=== PATIENT | female | born 1960 | race Caucasian/White ===

== ENCOUNTER 2017-04-08 02:28 | Inpatient (IN) | payer BC, MEDICAID ==
[~2017-04-08] VITALS: Ht 165.1 cm; Wt 86.2 kg
[2017-04-08] VITALS (25 sets, daily range): BP systolic 90–145; BP diastolic 50–87
[2017-04-08] MEDS ORDERED: DILTIAZEM HCL 25 MG/5 ML VIAL IV ONE (03:30)
[2017-04-08] MEDS ORDERED: DIGOXIN (250MCG/ML) 2 ML AMPULE IV ONE (03:45)
[2017-04-08] MEDS ORDERED: AMIODARONE HCL (50 MG/ ML) 3 ML VIAL IV ONE (04:33)
[2017-04-08] MEDS ORDERED: AMIODARONE HCL 900 MG IV ONE (04:39)
[2017-04-08 04:43] LABS: Anion Gap 13 (5-15); Blood Urea Nitrogen 17 mg/dL (7-18); Calcium 9.1 mg/dL (8.5-10.1); Carbon Dioxide 21 mmol/L (21-32); Chloride 106 mmol/L (98-107); Glucose 302 mg/dL (74-106); Magnesium 2.1 mg/dL (1.6-2.6); Potassium 3.6 mmol/L (3.5-5.1); Sodium 140 mmol/L (136-145)
[2017-04-08 04:45] LABS: Aspartate Aminotransferase 11 U/L (15-37); BUN/Creatinine Ratio 19.3; GFR African American 85 mL/min; GFR Non-African American 70 mL/min
[2017-04-08] MEDS ORDERED: AMIODARONE HCL 150 MG in D5W 5% 100 ML IV ONE (04:45)
[2017-04-08] MEDS ORDERED: AMIODARONE HCL 900 MG in DEXTROSE 500 ML IV STA (04:45)
[2017-04-08] MEDS ORDERED: AMIODARONE HCL 900 MG in DEXTROSE 500 ML IV SCH ×3 (04:46→12:54)
[2017-04-08 04:50] LABS: Basophils # (auto) 0 uL; Basophils % (auto) 0.3 % (0.0-2.0); CONDITION Y; Eosinophils # (auto) 0.1 uL; Eosinophils % (auto) 0.6 % (0.0-7.0); Hematocrit 48.1 % (36.0-46.0); Hemoglobin 16.6 g/dL (12.2-16.2); Lymphocytes # (auto) 3.5 uL; Mean Corpuscular Hemoglobin 30.8 pg (28.0-32.0); Mean Corpuscular Hgb Conc. 34.5 g/dL (32.0-36.0); Mean Corpuscular Volume 89.3 fL (80.0-100.0); Mean Platelet Volume 10.8 fL (7.4-10.4); Monocytes # (auto) 0.7 uL; Monocytes % (auto) 7.9 % (0.0-12.0); Neutrophils # (auto) 5.1 uL; Neutrophils % (auto) 54.2 % (37.0-80.0); Platelet Count (auto) 246 10^3/uL (140-450); Red Cell Distribution Width 13.4 % (11.6-16.0); SUSPECT SEE PRINTOUT; White Blood Cell 9.5 10^3/uL (4.4-10.8)
[2017-04-08 04:51] LABS: Alkaline Phosphatase 136 U/L (45-117); Bilirubin, Total 0.5 mg/dL (0.2-1.0)
[2017-04-08] MEDS: AMIODARONE HCL 900 MG in DEXTROSE 500 ML IV SCH ×3 (05:00→11:14)
[2017-04-08] MEDS ORDERED: SODIUM CHLORIDE 0.9% 1,000 ML IV ONE (06:19)
[2017-04-08] MEDS ORDERED: DEXTROSE (50%) 50ML SYRG IV PRN (12:45)
[2017-04-08] MEDS ORDERED: TEMAZEPAM 15 MG CAP PO PRN (13:00)
[2017-04-08] MEDS ORDERED: ACETAMINOPHEN 325 MG TAB PO PRN (13:00)
[2017-04-08] MEDS ORDERED: ONDANSETRON HCL 4 MG/2 ML VIAL IV PRN (13:00)
[2017-04-08] MEDS ORDERED: HYDROcodone-ACET 5/325MG TAB PO PRN (13:00)
[2017-04-08] MEDS ORDERED: NITROGLYCERIN 0.4 MG SL TAB SL PRN (13:00)
[2017-04-08] MEDS ORDERED: MORPHINE SULF INJ 2 MG/ML SYRINGE 1ML IV PRN ×2 (13:00)
[2017-04-08] MEDS ORDERED: DOCUSATE SOD 100 MG CAP PO PRN (13:00)
[2017-04-08] MEDS ORDERED: MULTIPLE VITAMIN TAB PO ONE (13:15)
[2017-04-08] MEDS ORDERED: ENOXAPARIN SOD 40 MG/0.4 ML SYRINGE SC ONE (13:15)
[2017-04-08 13:45] LABS: B-Type Natriuretic Peptide 59.6 pg/mL (0-100)
[2017-04-08 13:46] LABS: Temperature: 23.3 C (20.0-25.0)
[2017-04-08 13:46] LABS: Urine Bilirubin Negative (Negative); Urine Color Yellow (Yellow); Urine Ketone Negative (Negative); Urine Nitrite Negative (Negative); Urine RBC 7 /hpf (0 - 4); Urine Squamous Epithelial Cell FEW /hpf (<5); Urine Urobilinogen Normal (Negative)
[2017-04-08 13:48] LABS: Urine Blood 1+ /uL (Negative); Urine Glucose 4+ mg/dL (Normal)
[2017-04-08] MEDS: SODIUM CHLOR 0.9% PF (SALINE LOCK) 10ML VIAL IV SCH ×2 (14:03→22:22)
[2017-04-08] MEDS: ACCU-CHEK COMFORT CURVE STRIP VI SCH ×2 (17:06→22:22)
[2017-04-08] MEDS: InsuLIN REG 1unit/0.01ml Soln (100units/ml) SC SCH ×2 (17:42→22:25)
[2017-04-08] MEDS ORDERED: METF-370 PO (17:51)
[2017-04-08 21:04] LABS: INR 1.05 (0.9-1.15); Prothrombin Time 11.4 sec (9.37-12.3)
[2017-04-09] VITALS (49 sets, daily range): BP systolic 95–138; BP diastolic 44–84
[2017-04-09] MEDS ORDERED: AMIODARONE HCL 900 MG IV ONE (03:54)
[2017-04-09 04:03] LABS: Albumin 3.1 g/dL (3.4-5.0); Anion Gap 8 (5-15); Basophils # (auto) 0 uL; Basophils % (auto) 0.4 % (0.0-2.0); Blood Urea Nitrogen 13 mg/dL (7-18); CONDITION Y; Calcium 8.7 mg/dL (8.5-10.1); Carbon Dioxide 25 mmol/L (21-32); Chloride 109 mmol/L (98-107); Eosinophils # (auto) 0.1 uL; Eosinophils % (auto) 1.3 % (0.0-7.0); Glucose 137 mg/dL (74-106); Hematocrit 42.5 % (36.0-46.0); Hemoglobin 14.6 g/dL (12.2-16.2); Lymphocytes # (auto) 2.3 uL; Mean Corpuscular Hemoglobin 30.9 pg (28.0-32.0); Mean Corpuscular Hgb Conc. 34.3 g/dL (32.0-36.0); Mean Corpuscular Volume 90.3 fL (80.0-100.0); Mean Platelet Volume 10.1 fL (7.4-10.4); Monocytes # (auto) 0.5 uL; Neutrophils # (auto) 4.1 uL; Neutrophils % (auto) 58.3 % (37.0-80.0); Platelet Count (auto) 223 10^3/uL (140-450); Potassium 3.7 mmol/L (3.5-5.1); Red Cell Distribution Width 13.9 % (11.6-16.0); Sodium 142 mmol/L (136-145); White Blood Cell 7.1 10^3/uL (4.4-10.8)
[2017-04-09] MEDS: AMIODARONE HCL 900 MG in DEXTROSE 500 ML IV SCH (04:03)
[2017-04-09 04:05] LABS: Aspartate Aminotransferase 15 U/L (15-37); GFR African American 135 mL/min; GFR Non-African American 111 mL/min
[2017-04-09 04:10] LABS: Alkaline Phosphatase 103 U/L (45-117); Bilirubin, Total 0.5 mg/dL (0.2-1.0); Total Protein 6.5 g/dL (6.4-8.2)
[2017-04-09] MEDS: SODIUM CHLOR 0.9% PF (SALINE LOCK) 10ML VIAL IV SCH ×2 (05:57→14:06)
[2017-04-09] MEDS: ACCU-CHEK COMFORT CURVE STRIP VI SCH ×4 (06:54→22:00)
[2017-04-09] MEDS: InsuLIN REG 1unit/0.01ml Soln (100units/ml) SC SCH ×4 (06:54→22:00)
[2017-04-09] MEDS: MULTIPLE VITAMIN TAB PO SCH (09:44)
[2017-04-09] MEDS ORDERED: ENOXAPARIN SOD 40 MG/0.4 ML SYRINGE SC SCH ×2 (10:00)
[2017-04-09] MEDS ORDERED: SOTALOL HCL 80 MG TAB PO ONE (12:00)
[2017-04-09] MEDS ORDERED: metFORMIN HYDROCHLORIDE 500 MG TAB PO ONE (14:22)
[2017-04-09] MEDS ORDERED: POTASSIUM CHL 20 Meq TABLET PO ONE (14:30)
[2017-04-09] MEDS: metFORMIN HYDROCHLORIDE 500 MG TAB PO SCH (17:29)
[2017-04-09] MEDS: SOTALOL HCL 80 MG TAB PO SCH (22:58)
[2017-04-10 06:00] VITALS: BP 92/48
[2017-04-10] MEDS: SODIUM CHLOR 0.9% PF (SALINE LOCK) 10ML VIAL IV SCH ×2 (06:20→06:21)
[2017-04-10] MEDS: metFORMIN HYDROCHLORIDE 500 MG TAB PO SCH (06:20)
[2017-04-10] MEDS: InsuLIN REG 1unit/0.01ml Soln (100units/ml) SC SCH ×2 (07:00→11:41)
[2017-04-10] MEDS: ACCU-CHEK COMFORT CURVE STRIP VI SCH ×2 (07:00→11:41)
[2017-04-10 09:11] VITALS: BP 101/65
[2017-04-10] MEDS: SOTALOL HCL 80 MG TAB PO SCH (10:00)
[2017-04-10] MEDS: MULTIPLE VITAMIN TAB PO SCH (11:12)
[2017-04-10 12:37] VITALS: BP 106/73
[2017-04-10 16:50] VITALS: BP 119/66
[2017-04-10 17:10] VITALS: BP 106/73
== END 2017-04-10 18:30 | disposition home or self-care (01) | DRG 309 ==
LOC: ER 02:35 → TELE 02:36 → ICU WEST 16:22 → TELE-WESTW 04-09 18:28
PROVIDERS: ADMIT Internal Medicine; ATTEND Internal Medicine
DX: I47.1 Supraventricular tachycardia (principal); I25.810 Atherosclerosis of coronary artery bypass graft(s) without angina pectoris; I45.6 Pre-excitation syndrome; E11.21 Type 2 diabetes mellitus with diabetic nephropathy; E11.22 Type 2 diabetes mellitus with diabetic chronic kidney disease; E11.65 Type 2 diabetes mellitus with hyperglycemia; N18.2 Chronic kidney disease, stage 2 (mild); I45.10 Unspecified right bundle-branch block; E66.9 Obesity, unspecified; I12.9 Hypertensive chronic kidney disease with stage 1 through stage 4 chronic kidney disease, or unspecified chronic kidney disease; Z91.14 Patient's other noncompliance with medication regimen; Z68.31 Body mass index [BMI] 31.0-31.9, adult; Z79.82 Long term (current) use of aspirin; Z91.19 Patient's noncompliance with other medical treatment and regimen; Z79.84 Long term (current) use of oral hypoglycemic drugs
CPT/HCPCS: 36415; 51702; 71010; 80053; 80307; 81001; 82962; 83036; 83735; 83880; 84443; 84484; 85025; 85379; 85610; 85652; 87081; 93005; 93306; 94761; 96361; 96365; 96375; J1815; J7060

== ENCOUNTER 2018-08-28 12:53 | Inpatient (IN) | payer BC, MEDICAID ==
[~2018-08-28] VITALS: Ht 167.6 cm; Wt 86.5 kg
[~2018-08-28 12:53] MED LIST: METF-370 PO
[2018-08-28] MEDS ORDERED: DILTIAZEM HCL 25 MG/5 ML VIAL IV ONE ×2 (13:15→13:30)
[2018-08-28] MEDS ORDERED: ASPirin 81 mg TAB PO ONE ×2 (13:15→13:30)
[2018-08-28] MEDS ORDERED: ONDANSETRON HCL 4 MG/2 ML VIAL IV ONE (13:30)
[2018-08-28] MEDS ORDERED: MORPHINE SULFATE 4 MG/ML SYR/VIAL IV ONE (13:30)
[2018-08-28 14:01] LABS: Basophils # (auto) 0 uL; Basophils % (auto) 0.4 % (0.0-2.0); Eosinophils # (auto) 0.1 uL; Eosinophils % (auto) 1.5 % (0.0-7.0); Hematocrit 40.5 % (36.0-46.0); Hemoglobin 13.7 g/dL (12.2-16.2); Lymphocytes # (auto) 1.1 uL; Lymphocytes % (auto) 16.2 % (10.0-50.0); Mean Corpuscular Hemoglobin 31.6 pg (28.0-32.0); Mean Corpuscular Hgb Conc. 33.7 g/dL (32.0-36.0); Mean Corpuscular Volume 93.6 fL (80.0-100.0); Monocytes # (auto) 0.7 uL; Neutrophils % (auto) 71.9 % (37.0-80.0); Nucleated Red Blood Cells % 0.1 %; Platelet Count (auto) 172 10^3/uL (140-450); Red Blood Cells 4.33 10^6/uL (4.0-5.20); Red Cell Distribution Width 13.4 % (11.8-14.3)
[2018-08-28 14:15] LABS: Albumin 3.2 g/dL (3.4-5.0); Anion Gap 6 (5-15); Aspartate Aminotransferase 21 U/L (15-37); BUN/Creatinine Ratio 23.1; Blood Urea Nitrogen 12 mg/dL (7-18); Calcium 8.1 mg/dL (8.5-10.1); Carbon Dioxide 24 mmol/L (21-32); Chloride 111 mmol/L (98-107); GFR African American 155 mL/min; GFR Non-African American 128 mL/min; Glucose 123 mg/dL (74-106); Magnesium 2.1 mg/dL (1.6-2.6); Potassium 3.2 mmol/L (3.5-5.1); Sodium 141 mmol/L (136-145)
[2018-08-28 14:17] LABS: INR 1.04 (0.9-1.15); Prothrombin Time 11.1 sec (9.27-12.13)
[2018-08-28 14:20] LABS: Alanine Aminotransferase 23 U/L (13-56); Alkaline Phosphatase 69 U/L (45-117); Bilirubin, Total 0.3 mg/dL (0.2-1.0); Total Protein 6.2 g/dL (6.4-8.2)
[2018-08-28] MEDS ORDERED: SOTALOL HCL 80 MG TAB PO ONE (14:30)
[2018-08-28] MEDS ORDERED: POTASSIUM CHL 20 Meq TABLET PO ONE (14:45)
[2018-08-28] MEDS ORDERED: MORPHINE SULFATE 4 MG/ML SYR/VIAL IV PRN (15:00)
[2018-08-28] MEDS ORDERED: DEXTROSE (50%) 50ML SYRG IV PRN (15:00)
[2018-08-28] MEDS ORDERED: NITROGLYCERIN 0.4 MG SL TAB SL PRN (15:00)
[2018-08-28] MEDS: InsuLIN REG 1unit/0.01ml Soln (100units/ml) SC SCH ×2 (17:33→21:53)
[2018-08-28] MEDS: ACCU-CHEK COMFORT CURVE STRIP VI SCH ×2 (17:34→21:53)
--- NOTE | 2018-08-28 20:19 | NUR ---
Telemetry admit from ER EPIFANIO HALL admitted to Telemetry unit. Patient oriented to JYOTI UMANZOR RN primary RN, unit, room, bed, and unit policies regarding patient care and visiting hours. Patient now on continuous telemetry monitoring, tele box # 12. Patient weighed by bedscale and encouraged to call if they need something. All questions and concerns addressed, patient verbalized understanding.
[2018-08-28 20:20] VITALS: BP 124/70
--- NOTE | 2018-08-28 21:30 | NUR ---
Patient refused to wear fall band.
[2018-08-28 21:35] LABS: Urine Bacteria FEW /hpf (None Seen); Urine Blood 1+ /uL (Negative); Urine Mucus FEW (None Seen); Urine Specific Gravity 1.018 (1.001-1.035); Urine WBC 4 /hpf (0 - 5)
[2018-08-28] MEDS: SOTALOL HCL 80 MG TAB PO SCH (21:52)
[2018-08-28] MEDS ORDERED: SOTALOL HCL 80 MG TAB PO SCH (22:00)
--- NOTE | 2018-08-28 22:00 | NUR ---
PAGED HOSPITALIST RE: PATIENT COMPLAINING OF HEADACHE. NO PAIN MEDICATIONS AVAILABLE AT THIS TIME. HOSPITALIST PAGED, AWAITING CALL BACK
--- NOTE | 2018-08-28 22:14 | NUR ---
NEW ORDERS RECEIVED FROM HOSPITALIST ARNOL ALL ORDERS READ BACK AND VERIFIED WILL CARRY OUT ORDERS
[2018-08-28] MEDS: ACETAMINOPHEN 500 MG TAB PO PRN (22:47)
[2018-08-29] VITALS (8 sets, daily range): BP systolic 105–118; BP diastolic 54–71
[2018-08-29] MEDS ORDERED: PRAV20TA3 PO (01:00)
[2018-08-29] MEDS ORDERED: SOTA80TA PO (01:00)
[2018-08-29] MEDS ORDERED: CHOL20007 PO (01:00)
[2018-08-29] MEDS: ACETAMINOPHEN 500 MG TAB PO PRN ×3 (05:09→17:55)
[2018-08-29] MEDS: ACCU-CHEK COMFORT CURVE STRIP VI SCH ×4 (06:48→22:12)
[2018-08-29] MEDS: InsuLIN REG 1unit/0.01ml Soln (100units/ml) SC SCH ×4 (06:48→22:13)
[2018-08-29 06:54] LABS: Calcium 8.3 mg/dL (8.5-10.1); Magnesium 2.3 mg/dL (1.6-2.6); Potassium 3.5 mmol/L (3.5-5.1)
--- NOTE | 2018-08-29 07:45 | NUR ---
OPENING NOTE Assumed care of patient from NOC RN. Patient awake and alert with no S/S of distress/SOB or pain. Instructed on POC and to call for assist PRN, verbalized understanding. Bed in lowest, locked position with side rails up x2 and call light within reach. Will continue to monitor for changes Q1hr and PRN.
[2018-08-29] MEDS: SOTALOL HCL 80 MG TAB PO SCH ×2 (10:00→22:00)
[2018-08-29] MEDS ORDERED: POTASSIUM CHL 20 Meq TABLET PO ONE (15:15)
--- NOTE | 2018-08-29 19:25 | NUR ---
CLOSING NOTE Endorsed care of patient to NOC RNRose.
[2018-08-30 05:19] VITALS: BP 137/77
[2018-08-30] MEDS: InsuLIN REG 1unit/0.01ml Soln (100units/ml) SC SCH ×4 (05:48→22:00)
[2018-08-30] MEDS: ACCU-CHEK COMFORT CURVE STRIP VI SCH ×4 (05:48→22:19)
--- NOTE | 2018-08-30 06:30 | NUR ---
Episode of 8 beats VTach: On assessment patient was sleeping. V/S BP 127/49,HR 64 , RR 18, O2 sat 97%. Patient denies SOB / chest pain. EKG done . Will give report to incoming RN.
--- NOTE | 2018-08-30 06:57 | NUR ---
Called/paged called re:episode of Vtach and to inform yhe EKG report . Waiting for call back. Continue care.
--- NOTE | 2018-08-30 07:30 | NUR ---
Dr Hall came and informed him re: episode of VTach, and Sotalol medication been not given because of HR of 57. EKG reprt shown to Dr Hall. Per Dr Hall to hold Sotalol if HR is <50 and SBP < 100.
--- NOTE | 2018-08-30 07:35 | NUR ---
Opening Shift Note Assumed care of patient, awake and alert. No S/S of distress/SOB, mild back pain. at bedside reviewing v tach strips, states he will decide if she needs any further testing. Instructed on POC and to call for assist PRN, will continue to monitor for changes Q1hr and PRN.
[2018-08-30 07:45] VITALS: BP 113/75
[2018-08-30] MEDS: HYDROcodone-ACET 5/325MG TAB PO PRN ×2 (07:55→14:54)
[2018-08-30] MEDS: SODIUM CHLORIDE 0.9% 1,000 ML IV SCH ×2 (09:58→22:26)
[2018-08-30] MEDS: SOTALOL HCL 80 MG TAB PO SCH ×2 (10:00→22:18)
[2018-08-30] MEDS: DIGOXIN 0.125 MG TAB PO SCH (10:00)
[2018-08-30] MEDS ORDERED: DIGOXIN 0.125 MG TAB PO SCH (10:00)
[2018-08-30] MEDS ORDERED: LIDOCAINE 2%HCL (LOCAL ANESTH.) INJ 20ML MDV ONE (11:55)
[2018-08-30] MEDS ORDERED: IODIXANOL 320MG/ML 100ML BTL IV ONE (11:55)
[2018-08-30] MEDS ORDERED: VERAPAMIL 2.5MG/ML INJ 2ML VIAL IV ONE (12:53)
[2018-08-30] MEDS ORDERED: ANGIOMAX 250 MG VIAL IV ONE (12:53)
[2018-08-30] MEDS ORDERED: MIDAZOLAM HCL 1MG/1ML-2 ML VIAL ONE (12:54)
[2018-08-30] MEDS ORDERED: SODIUM CHL 0.9% 0 ML ONE (12:54)
[2018-08-30] MEDS ORDERED: fentaNYL CITRATE 100 MCG/2 ML VL ONE (12:54)
[2018-08-30] MEDS ORDERED: HEPARIN 1,000 UNITS/ml 1ML VIAL ONE (13:41)
[2018-08-30] MEDS: LIDOCAINE 2%HCL (LOCAL ANESTH.) INJ 20ML MDV ONE (14:10)
[2018-08-30] MEDS: fentaNYL CITRATE 100 MCG/2 ML VL ONE (16:02)
[2018-08-30] MEDS: MIDAZOLAM HCL 1MG/1ML-2 ML VIAL ONE (16:02)
[2018-08-30] MEDS ORDERED: ASPirin 325 MG TAB ONE (18:31)
--- NOTE | 2018-08-30 20:00 | NUR ---
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 Resting in bed. Tegaderm dressing with gauze on left wrist and right groin. Both sites are clean dry and intact. Patient was instructed to remain flat in bed until 20:50. Patient verbalized understanding.
[2018-08-30 23:11] VITALS: BP 145/100
[2018-08-31] MEDS: SODIUM CHLORIDE 0.9% 1,000 ML IV SCH (04:08)
[2018-08-31 05:18] VITALS: BP 122/74
[2018-08-31] MEDS: ACCU-CHEK COMFORT CURVE STRIP VI SCH ×2 (06:49→11:30)
[2018-08-31] MEDS: InsuLIN REG 1unit/0.01ml Soln (100units/ml) SC SCH ×2 (06:49→11:30)
--- NOTE | 2018-08-31 07:30 | NUR ---
RECEIVED REPORT FROM NIGHT NURSE. PATIENT RESTING IN BED, NO DISTRESS NOTED. DRESSINGS TO LEFT WRIST AND RIGHT GROIN C/D/I.
[2018-08-31 09:00] VITALS: BP 124/74
[2018-08-31] MEDS: SOTALOL HCL 80 MG TAB PO SCH (09:57)
[2018-08-31] MEDS: DIGOXIN 0.125 MG TAB PO SCH (09:58)
[2018-08-31] MEDS ORDERED: INFLUENZA QUAD 2018-2019 0.5 ML SYRG IM ONE (10:00)
[2018-08-31] MEDS ORDERED: ASPirin 81 mg TAB PO SCH (10:00)
== END 2018-08-31 14:00 | disposition home or self-care (01) | DRG 273 ==
LOC: ER 12:54 → TELE 14:55 → TELE-EAST 20:20
PROVIDERS: ADMIT Internal Medicine; ATTEND Internal Medicine
PROC: 02583ZZ Destruction of Conduction Mechanism, Percutaneous Approach (ICD-10-PCS; principal; 2018-08-30)
PROC: 4A0234Z Measurement of Cardiac Electrical Activity, Percutaneous Approach (ICD-10-PCS; 2018-08-30)
PROC: 02K83ZZ Map Conduction Mechanism, Percutaneous Approach (ICD-10-PCS; 2018-08-30)
PROC: B2111ZZ Fluoroscopy of Multiple Coronary Arteries using Low Osmolar Contrast (ICD-10-PCS; 2018-08-30)
DX: I47.1 Supraventricular tachycardia (principal); I50.41 Acute combined systolic (congestive) and diastolic (congestive) heart failure; Q24.5 Malformation of coronary vessels; E87.6 Hypokalemia; I47.2 Ventricular tachycardia; E66.9 Obesity, unspecified; E11.9 Type 2 diabetes mellitus without complications; F41.9 Anxiety disorder, unspecified; I11.0 Hypertensive heart disease with heart failure; I45.6 Pre-excitation syndrome
CPT/HCPCS: 36415; 71045; 80048; 80053; 81001; 82962; 83036; 83735; 83880; 84443; 84484; 85025; 85610; 85730; 90674; 93005; 94761; 96374; 96375; 99152; A6257; G0378; J1815; J2250; J2405; Q9967

== ENCOUNTER 2018-09-14 19:32 | Inpatient (IN) | payer BC, MEDICAID ==
[~2018-09-14] VITALS: Ht 165.1 cm; Wt 83.0 kg
[~2018-09-14 19:32] MED LIST changes: +CHOL20007 PO; +PRAV20TA3 PO; +SOTA80TA PO
[2018-09-14] MEDS ORDERED: SODIUM CHLORIDE 0.9% 1,000 ML IVB ONE (19:52)
[2018-09-14 20:34] LABS: Basophils # (auto) 0 uL; Basophils % (auto) 0.5 % (0.0-2.0); Eosinophils # (auto) 0 uL; Eosinophils % (auto) 0.2 % (0.0-7.0); Hemoglobin 16.7 g/dL (12.2-16.2); Lymphocytes # (auto) 1.5 uL; Lymphocytes % (auto) 23.3 % (10.0-50.0); Mean Corpuscular Hemoglobin 31.2 pg (28.0-32.0); Mean Corpuscular Hgb Conc. 33.3 g/dL (32.0-36.0); Mean Corpuscular Volume 93.6 fL (80.0-100.0); Monocytes # (auto) 0.8 uL; Monocytes % (auto) 12.7 % (0.0-12.0); Neutrophils # (auto) 4.1 uL; Neutrophils % (auto) 63.3 % (37.0-80.0); Platelet Count (auto) 265 10^3/uL (140-450); Red Blood Cells 5.35 10^6/uL (4.0-5.20); Red Cell Distribution Width 13.8 % (11.8-14.3); White Blood Cell 6.5 10^3/uL (4.4-10.8)
[2018-09-14 20:57] LABS: Albumin 3.8 g/dL (3.4-5.0); Anion Gap 9 (5-15); Blood Urea Nitrogen 22 mg/dL (7-18); Calcium 8.9 mg/dL (8.5-10.1); Carbon Dioxide 24 mmol/L (21-32); Chloride 102 mmol/L (98-107); Glucose 128 mg/dL (74-106); Magnesium 2.7 mg/dL (1.6-2.6); Potassium 3.9 mmol/L (3.5-5.1); Sodium 135 mmol/L (136-145)
[2018-09-14 20:59] LABS: INR 1.02 (0.9-1.15); Partial Thromboplastin Time 25.9 sec (23.78-33.04); Prothrombin Time 10.9 sec (9.27-12.13)
[2018-09-14 21:02] LABS: Alanine Aminotransferase 27 U/L (13-56); Alkaline Phosphatase 78 U/L (45-117); Aspartate Aminotransferase 27 U/L (15-37); BUN/Creatinine Ratio 29.7; Bilirubin, Total 0.5 mg/dL (0.2-1.0); GFR African American 103 mL/min; GFR Non-African American 85 mL/min; Total Protein 7.7 g/dL (6.4-8.2)
[2018-09-14] MEDS ORDERED: SOTALOL HCL 80 MG TAB PO ONE (21:15)
[2018-09-14] MEDS ORDERED: ONDANSETRON HCL 4 MG/2 ML VIAL IV PRN (21:30)
[2018-09-14] MEDS ORDERED: ACETAMINOPHEN 325 MG TAB PO PRN (21:30)
[2018-09-14] MEDS ORDERED: NITROGLYCERIN 0.4 MG SL TAB SL PRN (21:30)
[2018-09-14] MEDS ORDERED: HYDROcodone-ACET 5/325MG TAB PO PRN (21:30)
[2018-09-14] MEDS ORDERED: DEXTROSE (50%) 50ML SYRG IV PRN (21:30)
[2018-09-14] MEDS ORDERED: MORPHINE SULFATE 10 MG/ML INJ 1ML SDV IV PRN (21:30)
[2018-09-14] MEDS: SOTALOL HCL 80 MG TAB PO SCH (22:00)
[2018-09-14] MEDS ORDERED: POTASSIUM CHL 20 Meq TABLET PO ONE (22:15)
[2018-09-14] MEDS: FAMOTIDINE 20 MG TAB PO SCH (22:20)
[2018-09-14] MEDS: PRAVASTATIN SODIUM 20 MG TAB PO SCH (22:20)
--- NOTE | 2018-09-14 22:45 | NUR ---
Telemetry admit from ER EPIFANIO HALL admitted to Telemetry unit after SBAR received. Patient oriented to araceli VERDIN RN, unit, room, bed, and unit policies regarding patient care and visiting hours. Patient now on continuous telemetry monitoring, tele box # 3 and telemetry reading on arrival to unit is sinus rhythm. Patient weighed by bed scale and encouraged to call if they need something. All questions and concerns addressed, patient verbalized understanding.
[2018-09-14] MEDS: InsuLIN REG 1unit/0.01ml Soln (100units/ml) SC SCH (22:50)
[2018-09-14] MEDS: ACCU-CHEK COMFORT CURVE STRIP VI SCH (23:01)
[2018-09-14] MEDS: SODIUM CHLORIDE 0.9% 1,000 ML IV SCH (23:11)
[2018-09-14 23:14] VITALS: BP 113/74
[2018-09-15] MEDS ORDERED: guaiFENesin-DM 100/10mg/5ml SYR PO PRN (03:45)
[2018-09-15 05:30] VITALS: BP 110/51
[2018-09-15] MEDS: SODIUM CHLORIDE 0.9% 1,000 ML IV SCH ×3 (05:48→17:41)
[2018-09-15] MEDS: InsuLIN REG 1unit/0.01ml Soln (100units/ml) SC SCH ×4 (05:50→20:52)
[2018-09-15] MEDS: ACCU-CHEK COMFORT CURVE STRIP VI SCH ×4 (05:50→20:53)
[2018-09-15] MEDS ORDERED: PNEUMOCOCCAL VACC POLYS 25 MCG/0.5 ML VIAL IM ONE (06:45)
[2018-09-15] MEDS ORDERED: INFLUENZA QUAD 2018-2019 0.5 ML SYRG IM ONE (06:45)
[2018-09-15 06:51] LABS: Basophils # (auto) 0 uL; Basophils % (auto) 0.6 % (0.0-2.0); Eosinophils # (auto) 0 uL; Eosinophils % (auto) 0.3 % (0.0-7.0); Hematocrit 40.1 % (36.0-46.0); Hemoglobin 13.4 g/dL (12.2-16.2); Lymphocytes # (auto) 1.4 uL; Lymphocytes % (auto) 34.3 % (10.0-50.0); Mean Corpuscular Hemoglobin 31.5 pg (28.0-32.0); Mean Corpuscular Hgb Conc. 33.3 g/dL (32.0-36.0); Mean Corpuscular Volume 94.4 fL (80.0-100.0); Monocytes # (auto) 0.6 uL; Monocytes % (auto) 15.1 % (0.0-12.0); Neutrophils # (auto) 2.1 uL; Neutrophils % (auto) 49.7 % (37.0-80.0); Nucleated Red Blood Cells % 0.2 %; Platelet Count (auto) 178 10^3/uL (140-450); Red Blood Cells 4.25 10^6/uL (4.0-5.20); Red Cell Distribution Width 13.9 % (11.8-14.3); White Blood Cell 4.2 10^3/uL (4.4-10.8)
[2018-09-15 07:03] LABS: Magnesium 2.3 mg/dL (1.6-2.6); Potassium 3.5 mmol/L (3.5-5.1)
--- NOTE | 2018-09-15 07:30 | NUR ---
Opening Shift Note Assumed care of patient, awake, alert, and oriented x4. No S/S of distress/SOB or pain. IV in right hand 20 gauge asymptomatic, intact, patent, and infusing normal saline at 125 mL/hour. Bed locked and in lowest position and call light is within reach. Instructed on POC and to call for assist PRN, and patient verbalized understanding. Will continue to monitor for changes Q1hr and PRN.
--- NOTE | 2018-09-15 09:00 | NUR ---
RECEIVED CALL FROM SARAH SARAH athletic monitor reports patient has heart rate of 150. Will follow protocol, do EKG, and get vital signs. Current blood pressure is 105/77 mm/Hg, and heart rate is 150 bpm.
--- NOTE | 2018-09-15 09:10 | NUR ---
DR. HUNT RETURNED HOSPITALIST PAGE. NEW ORDERS RECEIVED.
[2018-09-15 09:12] VITALS: BP 105/77
--- NOTE | 2018-09-15 09:15 | NUR ---
PAGED TURNING MACHINE SET UP OPERATOR DR. ROSAS.
[2018-09-15] MEDS ORDERED: DIGOXIN (250MCG/ML) 2 ML AMPULE IV ONE ×2 (09:45)
[2018-09-15] MEDS ORDERED: ASPirin 81 mg TAB PO SCH (10:00)
[2018-09-15] MEDS ORDERED: ENOXAPARIN SOD 40 MG/0.4 ML SYRINGE SC SCH (10:00)
--- NOTE | 2018-09-15 11:00 | NUR ---
PATIENT CONVERTED BACK TO HEART RHYTHM A-FIB WITH RATE OF 65. PATIENT RESTING COMFORTABLY.
--- NOTE | 2018-09-15 11:00 | NUR ---
DR. UHNT CALLED TO CHECK ON PATIENT STATUS.
[2018-09-15] MEDS: FAMOTIDINE 20 MG TAB PO SCH ×2 (11:07→20:52)
[2018-09-15] MEDS: SOTALOL HCL 80 MG TAB PO SCH (11:08)
[2018-09-15 13:00] VITALS: BP 129/74
--- NOTE | 2018-09-15 13:00 | NUR ---
INTERNATIONAL OPERATIONS MANAGER DR. ROSAS RETURNED PHONE CALL.
--- NOTE | 2018-09-15 14:00 | NUR ---
DR. HUNT CALLED TO CHECK ON PATIENT.
--- NOTE | 2018-09-15 14:24 | NUR ---
DR. ROSAS AT BEDSIDE. NEW ORDERS RECEIVED.
--- NOTE | 2018-09-15 16:07 | NUR ---
DR. ROSAS CALLED. NEW ORDERS RECEIVED.
[2018-09-15 16:44] VITALS: BP 122/72
--- NOTE | 2018-09-15 19:37 | NUR ---
Opening Shift Note Assumed care of patient, awake and alert. No S/S of distress/SOB or pain. Instructed on POC and to call for assist PRN, will continue to monitor for changes Q1hr and PRN. Patient aware of transfer to [facility] in am.
[2018-09-15] MEDS: PRAVASTATIN SODIUM 20 MG TAB PO SCH (20:52)
[2018-09-15 22:00] VITALS: BP 108/70
[2018-09-15] MEDS ORDERED: FLECAINIDE ACETATE 50 MG TAB PO SCH (22:00)
--- NOTE | 2018-09-15 22:34 | NUR ---
2039 Received call from Angela from [facility]. If patient is not transferring tonight bed will not be on hold. option 3. Verified with charge nurse, patient has orders and can go tonight. 2044 Called Angela at [facility] and informed her we are transferring patient tonight. Patient will be transferred to Unit 7300 (7311 Bed 2) Patient informed of transfer tonight, consent for transfer signed. 2129 Called [facility] spoke with Frans[place], transportation arranged for 2229 pick-up. 2214 Called report to Fadumo GOMEZ ext. [phone]. 2229 Received call from [facility], delayed transport for one hour due to emergency calls.
--- NOTE | 2018-09-15 23:13 | NUR ---
[facility] ambulance picked up patient to [facility].
[2018-09-16] MEDS ORDERED: METOPROLOL SUCCINATE XL 50 MG TAB PO SCH (10:00)
== END 2018-09-15 23:15 | disposition short-term general hospital (02) | DRG 308 ==
LOC: ER 19:32 → WEST WING 21:36 → TELE-WESTW 22:22
PROVIDERS: ADMIT Nurse Practitioner; ATTEND Nurse Practitioner
DX: I47.1 Supraventricular tachycardia (principal); I50.41 Acute combined systolic (congestive) and diastolic (congestive) heart failure; I11.0 Hypertensive heart disease with heart failure; E78.5 Hyperlipidemia, unspecified; E66.9 Obesity, unspecified; E11.9 Type 2 diabetes mellitus without complications; I45.6 Pre-excitation syndrome; I48.91 Unspecified atrial fibrillation; Z23 Encounter for immunization
CPT/HCPCS: 36415; 71045; 80053; 82962; 83605; 83735; 83880; 84132; 84443; 84484; 85025; 85610; 85730; 87040; 87081; 87804; 93005; 93306; 94761; 99291; G0378; J1815

== ENCOUNTER 2018-10-04 11:13 | Inpatient (IN) | payer BC, MEDICAID ==
[~2018-10-04] VITALS: Ht 165.1 cm; Wt 85.2 kg
[~2018-10-04 11:13] MED LIST changes: -SOTA80TA PO
[2018-10-04 12:24] LABS: Basophils # (auto) 0 uL; Basophils % (auto) 0.5 % (0.0-2.0); Eosinophils # (auto) 0.1 uL; Eosinophils % (auto) 2.2 % (0.0-7.0); Hematocrit 38.4 % (36.0-46.0); Hemoglobin 13.1 g/dL (12.2-16.2); Lymphocytes # (auto) 1.4 uL; Lymphocytes % (auto) 20.4 % (10.0-50.0); Mean Corpuscular Hemoglobin 31.5 pg (28.0-32.0); Mean Corpuscular Volume 92.8 fL (80.0-100.0); Monocytes # (auto) 0.5 uL; Monocytes % (auto) 7.1 % (0.0-12.0); Neutrophils # (auto) 4.7 uL; Neutrophils % (auto) 69.8 % (37.0-80.0); Nucleated Red Blood Cells % 0.1 %; Platelet Count (auto) 227 10^3/uL (140-450); Red Blood Cells 4.14 10^6/uL (4.0-5.20); Red Cell Distribution Width 13.3 % (11.8-14.3); White Blood Cell 6.7 10^3/uL (4.4-10.8)
[2018-10-04 12:34] LABS: Albumin 3.4 g/dL (3.4-5.0); Potassium 3.8 mmol/L (3.5-5.1)
[2018-10-04 12:38] LABS: BUN/Creatinine Ratio 14.6; Calcium 8.8 mg/dL (8.5-10.1)
[2018-10-04 12:40] LABS: Bilirubin, Total 0.5 mg/dL (0.2-1.0); Total Protein 7.1 g/dL (6.4-8.2)
[2018-10-04 13:32] LABS: Urine Bacteria FEW /hpf (None Seen); Urine Blood 2+ /uL (Negative); Urine Mucus FEW (None Seen); Urine Specific Gravity 1.028 (1.001-1.035); Urine WBC 13 /hpf (0 - 5)
[2018-10-04] MEDS ORDERED: SODIUM CHLORIDE 0.9% 1,000 ML IVB ONE (14:52)
[2018-10-04] MEDS ORDERED: KETOROLAC TROMETH 30 MG/ML 1ML VIAL IV ONE (15:00)
[2018-10-04] MEDS ORDERED: LORazepam 0.5 MG TAB PO PRN (15:15)
[2018-10-04] MEDS ORDERED: TEMAZEPAM 15 MG CAP PO PRN (15:15)
[2018-10-04] MEDS ORDERED: PROMETHAZINE HCL 25 MG/ML 1ML IV PRN (15:15)
[2018-10-04] MEDS ORDERED: NALBUPHINE HCL 10 MG/1ml INJECTION IV PRN (15:15)
[2018-10-04] MEDS ORDERED: cefTRIAXone 1GM/50ML D5W 50 ML IV ONE (15:15)
[2018-10-04] MEDS ORDERED: NITROGLYCERIN 0.4 MG SL TAB SL PRN (15:15)
[2018-10-04] MEDS ORDERED: DEXTROSE (50%) 50ML SYRG IV PRN (15:15)
[2018-10-04] MEDS ORDERED: MORPHINE SULFATE 4 MG/ML SYR/VIAL IV PRN (15:15)
[2018-10-04] MEDS: SODIUM CHLORIDE 0.9% 1,000 ML IV SCH (16:15)
[2018-10-04] MEDS: ACCU-CHEK COMFORT CURVE STRIP VI SCH ×2 (17:06→21:37)
--- NOTE | 2018-10-04 18:00 | NUR ---
Pt arrived from ER, assumed care of pt, awake and alert, no s&s of distress/sob or pain noted, will continue to monitor for changes q1h and prn.
[2018-10-04 18:06] VITALS: BP 149/79
[2018-10-04] MEDS ORDERED: MANNITOL 20% SOLN 100 gm/500ml 62.5 ML IV ONE (18:45)
[2018-10-04] MEDS: FAMOTIDINE 20 MG TAB PO SCH (21:37)
[2018-10-04] MEDS: traMADol HCL 50 MG TAB PO PRN (21:38)
[2018-10-04 22:06] VITALS: BP 127/79
[2018-10-05] MEDS: SODIUM CHLORIDE 0.9% 1,000 ML IV SCH ×2 (04:51→17:09)
[2018-10-05 05:09] VITALS: BP 132/75
--- NOTE | 2018-10-05 06:10 | NUR ---
MRSA swab sent to lab
[2018-10-05] MEDS: ACCU-CHEK COMFORT CURVE STRIP VI SCH ×4 (06:32→23:20)
--- NOTE | 2018-10-05 07:27 | NUR ---
Assumed care of pt awake and alert, no s&s of distress/sob or pain noted, instructed on poc and to call for assist prn, will continue to monitor fo changes q1h and prn.
[2018-10-05 08:30] VITALS: BP 144/78
[2018-10-05] MEDS: cefTRIAXone 1GM/50ML D5W 50 ML IV SCH (08:42)
[2018-10-05] MEDS: FAMOTIDINE 20 MG TAB PO SCH ×2 (08:42→23:08)
--- NOTE | 2018-10-05 12:21 | NUR ---
Pt awake and alert, no s&s of distress/sob or pain noted, will continue to monitor for changes q1h and prn.
[2018-10-05 12:30] VITALS: BP 141/71
[2018-10-05] MEDS ORDERED: FUROSEMIDE 20 MG/2 ML VIAL IV ONE (15:45)
--- NOTE | 2018-10-05 16:42 | NUR ---
Pt awake and alert, no s&s of distress/sob or pain noted, will continue to monitor for changes q1h and prn.
[2018-10-05 16:44] VITALS: BP 128/78
[2018-10-05] MEDS: TAMSULOSIN HYDROCHLORIDE 0.4 MG CAP PO SCH (17:10)
--- NOTE | 2018-10-05 19:35 | NUR ---
OPENING NOTES RECEIVED REPORT FROM DAY SHIFT NURSE. PATIENT IS AWAKE AND ALERT X 4 WITH NO S/S OF DISTRESS BUT PAIN 7/10. PT REPOSITION. STRAINER IN BATHROOM AND PT EDUCATED ON IT. PT VERBALIZED UNDERSTANDING. BED IS IN LOWEST POSITION WITH SIDE RAILS UP X 2. BED BRAKES ARE LOCKED AND CALL LIGHT IS WITH IN REACH. DISCUSSED POC WITH PT. PT VERBALIZED UNDERSTANDING
[2018-10-05 20:00] VITALS: BP 128/78
[2018-10-05] MEDS: traMADol HCL 50 MG TAB PO PRN (20:30)
[2018-10-05] MEDS: POTASSIUM EFFERVESENT TAB 25 MEQ PO SCH (23:08)
[2018-10-06] VITALS (7 sets, daily range): BP systolic 127–157; BP diastolic 68–89
[2018-10-06] MEDS: SODIUM CHLORIDE 0.9% 1,000 ML IV SCH ×3 (01:53→16:05)
[2018-10-06] MEDS ORDERED: FUROSEMIDE 20 MG/2 ML VIAL IV ONE (05:00)
[2018-10-06] MEDS: traMADol HCL 50 MG TAB PO PRN ×3 (06:02→21:04)
[2018-10-06] MEDS: ACCU-CHEK COMFORT CURVE STRIP VI SCH ×4 (06:34→22:49)
[2018-10-06 06:45] LABS: Calcium 8.9 mg/dL (8.5-10.1); Potassium 3.3 mmol/L (3.5-5.1)
[2018-10-06 06:47] LABS: BUN/Creatinine Ratio 14.5
[2018-10-06] MEDS: cefTRIAXone 1GM/50ML D5W 50 ML IV SCH (09:25)
[2018-10-06] MEDS: FAMOTIDINE 20 MG TAB PO SCH ×2 (11:46→22:49)
[2018-10-06] MEDS: POTASSIUM EFFERVESENT TAB 25 MEQ PO SCH ×2 (11:47→22:49)
[2018-10-06] MEDS: TAMSULOSIN HYDROCHLORIDE 0.4 MG CAP PO SCH (17:17)
--- NOTE | 2018-10-06 19:40 | NUR ---
OPENING NOTES RECEIVED REPORT FROM DAY SHIFT NURSE. PATIENT IS AWAKE AND ALERT X 4 WITH NO S/S OF DISTRESS BUT PAIN 7/10. PT REPOSITION. STRAINER IN BATHROOM AND PT EDUCATED ON IT. PT VERBALIZED UNDERSTANDING. PT WILL BE PLACED ON NPO AFTER MIDNIGHT, PT VERBALIZED UNDERSTANDING. BED IS IN LOWEST POSITION WITH SIDE RAILS UP X 2. BED BRAKES ARE LOCKED AND CALL LIGHT IS WITH IN REACH. DISCUSSED POC WITH PT. PT VERBALIZED UNDERSTANDING
--- NOTE | 2018-10-06 23:11 | NUR ---
IV insertion IV access obtained, via clean sterile technique by inserting 20 gauge catheter at right hand after 2 attempts. IV secured properly. No trauma to site. Patient tolerated well.
[2018-10-06] MEDS: ACETAMINOPHEN 500 MG TAB PO PRN (23:43)
[2018-10-07] MEDS: SODIUM CHLORIDE 0.9% 1,000 ML IV SCH ×3 (01:22→17:38)
[2018-10-07 05:17] VITALS: BP 130/79
[2018-10-07] MEDS: ACCU-CHEK COMFORT CURVE STRIP VI SCH ×4 (06:52→22:26)
[2018-10-07 08:05] LABS: INR 1.02 (0.9-1.15); Partial Thromboplastin Time 19.1 sec (23.78-33.04); Prothrombin Time 10.9 sec (9.27-12.13)
[2018-10-07 08:57] VITALS: BP 123/75
[2018-10-07] MEDS: cefTRIAXone 1GM/50ML D5W 50 ML IV SCH (09:21)
[2018-10-07] MEDS: POTASSIUM EFFERVESENT TAB 25 MEQ PO SCH ×2 (09:22→22:00)
[2018-10-07] MEDS: FAMOTIDINE 20 MG TAB PO SCH ×2 (09:23→22:23)
--- NOTE | 2018-10-07 11:10 | NUR ---
CALLED OR TO SEE WHEN PATIENT IS HAVING PROCEDURE. OR REPORTS PT HAVING PROCEDURE AT [address] ROGEL COMES IN. PT NOTIFIED, WILL CONTINUE TO MONITOR.
[2018-10-07] MEDS: ACETAMINOPHEN 500 MG TAB PO PRN (11:18)
--- NOTE | 2018-10-07 11:29 | NUR ---
DID [id number] ACCUCHECK, PT BLOOD SUGAR 114. PT REPORTS 9/10 PAIN IN HEAD, PRN TYLENOL GIVEN, WILL CONTINUE TO MONITOR.
[2018-10-07 13:07] VITALS: BP 152/85
--- NOTE | 2018-10-07 14:00 | NUR ---
NAPHTHALENE STILL OPERATOR REPORTS PT BP 152/85, REASSESSED BP, BP 138/88 AND HR 64. WILL CONTINUE TO MONITOR.
[2018-10-07] MEDS ORDERED: MORPHINE SULFATE 4 MG/ML SYR/VIAL IV PRN (15:00)
[2018-10-07] MEDS ORDERED: traMADol HCL 50 MG TAB PO PRN (15:00)
[2018-10-07 16:23] VITALS: BP 129/73
--- NOTE | 2018-10-07 16:24 | NUR ---
PT VOIDED 600 ML CLEAR YELLOW URINE, SMALL STONE VISUALIZED IN STRAINER. WILL CONTINUE TO MONITOR.
[2018-10-07] MEDS: TAMSULOSIN HYDROCHLORIDE 0.4 MG CAP PO SCH (17:38)
[2018-10-07] MEDS ORDERED: PROPOFOL 10 MG/ML 20 ML IV ONE (19:04)
[2018-10-07] MEDS ORDERED: ONDANSETRON HCL 4 MG/2 ML VIAL ONE (19:04)
[2018-10-07] MEDS ORDERED: fentaNYL CITRATE 100 MCG/2 ML VL ONE (19:04)
[2018-10-07] MEDS ORDERED: MIDAZOLAM HCL 1MG/1ML-2 ML VIAL ONE (19:04)
--- NOTE | 2018-10-07 19:11 | NUR ---
PATIENT TRANSPORTED TO OR VIA BED AND STAFF, NO DISTRESS NOTED.
--- NOTE | 2018-10-07 19:20 | NUR ---
Opening Shift Note Assumed care of patient from day shift JASON Patino. Pt is off of unit at procedure at this time.
[2018-10-07 19:34] LABS: Urine Bacteria FEW /hpf (None Seen); Urine Blood Negative /uL (Negative); Urine Specific Gravity 1.008 (1.001-1.035); Urine WBC 1 /hpf (0 - 5)
[2018-10-07] MEDS ORDERED: CIPROFLOXACIN 400MG/200ML 200 ML IV ONE (19:37)
--- NOTE | 2018-10-07 20:00 | NUR ---
PT OFF UNIT AT PROCEDURE. UNABLE TO COMPLETE 1999 ASSESSMENT INTERVENTIONS. Addendum: 10/08/18 at 0009 by FERNANDO VIRAMONTES RN RN Amended: Links added.
[2018-10-07] MEDS ORDERED: DILTIAZEM HCL 25 MG/5 ML VIAL IV PRN (20:30)
--- NOTE | 2018-10-07 20:45 | NUR ---
REPORT GIVEN TO STEPHEN GOMEZ. NEW ORDERS FOR PATIENT TX TO TELEMETRY. REPORT GIVEN TO STEPHEN GOMEZ. PT STILL OFF UNIT IN PROCEDURE AT THIS TIME.
[2018-10-07] MEDS: METOPROLOL TARTRATE 25 MG TAB PO SCH ×2 (21:12→22:00)
[2018-10-07 22:00] VITALS: BP 108/87
--- NOTE | 2018-10-07 22:10 | NUR ---
Received patient from PACU and report from Albertina GOMEZ. Patient stable, no distress or pain, vitals within normal, continue care.
--- NOTE | 2018-10-07 22:20 | NUR ---
Blood sugar is 138, no sliding scale.
[2018-10-08] MEDS: SODIUM CHLORIDE 0.9% 1,000 ML IV SCH (01:40)
[2018-10-08 05:00] VITALS: BP 106/73
--- NOTE | 2018-10-08 06:05 | NUR ---
IV insertion IV access obtained, via clean sterile technique by inserting 22 gauge catheter at L forearm after 2 attempt(s). IV secured properly. No trauma to site. Patient tolerated well.
[2018-10-08] MEDS: ACCU-CHEK COMFORT CURVE STRIP VI SCH ×4 (06:46→21:54)
--- NOTE | 2018-10-08 06:46 | NUR ---
Accu check 109, no sliding scale.
--- NOTE | 2018-10-08 07:45 | NUR ---
Patient stable at this time, HR within normal, no sob or pain. Endorsed care to Serenity GOMEZ.
[2018-10-08 08:00] VITALS: BP 114/57
[2018-10-08] MEDS: cefTRIAXone 1GM/50ML D5W 50 ML IV SCH (09:05)
[2018-10-08] MEDS: POTASSIUM EFFERVESENT TAB 25 MEQ PO SCH (09:05)
[2018-10-08] MEDS: FAMOTIDINE 20 MG TAB PO SCH ×2 (09:06→21:53)
[2018-10-08] MEDS: METOPROLOL TARTRATE 25 MG TAB PO SCH ×2 (09:07→21:53)
--- NOTE | 2018-10-08 11:25 | NUR ---
UROLOGY SONG AT BEDSIDE, MADE AWARE PT PASSED OUT STONE.
--- NOTE | 2018-10-08 11:30 | NUR ---
PT SEEN BY DR. DE LA ROSA, HE ORDERED TO PUT CONSULT FOR DR. ROSAS TO SEE THE PT.
[2018-10-08] MEDS ORDERED: AMIODARONE HCL 900 MG in DEXTROSE 500 ML IV SCH (11:57)
--- NOTE | 2018-10-08 12:21 | NUR ---
FAN MAIL CLERK ZORAIDA NOTIFIED PT HAS AN ORDER FOR AMIODARONE DRIP, SHE SAID NO BED AVAILABLE AT THIS TIME. SHE WILL CALL CHARGE NURSE.
[2018-10-08 13:00] VITALS: BP 129/74
--- NOTE | 2018-10-08 13:30 | NUR ---
SPOKE WITH DR. HAYNES MADE AWARE DR. DE LA ROSA ORDERED AMIODARONE DRIP, HE SAID TO CANCEL THE ORDER. HE ORDERED AMIODARONE PO. HE SAID PT WAS ALREADY SEEN BY DR. ROSAS.
--- NOTE | 2018-10-08 13:35 | NUR ---
PHARMACY MADE AWARE AMIODARONE DRIP WAS CANCELLED.
--- NOTE | 2018-10-08 14:55 | NUR ---
Nutrition Assessment Notes Please see attached link fro complete assessment Est. Needs ABW [id number] kcal (23-25 kcal/kgBW), 69-75 gms pro (1.0-1.1 gms/kgBW). Will continue to monitor pertinent labs and reassess nutrient needs prn Addendum: 10/08/18 at [address] Amended: Links added.
[2018-10-08 15:32] LABS: Alcohol, Urine < 3.0 mg/dL (0-5); Amphetamine Screen, Urine NEGATIVE (NEGATIVE); Barbiturate Scree,Urine NEGATIVE (NEGATIVE); Benzodiazephine Screen, Urine POSITIVE (NEGATIVE); Cannabinoid Screen, Urine NEGATIVE (NEGATIVE); Cocaine Screen, Urine NEGATIVE (NEGATIVE); Opiate Scree,Urine NEGATIVE (NEGATIVE); Phencyclidine Screen, Urine NEGATIVE (NEGATIVE)
[2018-10-08 16:36] VITALS: BP 112/71
--- NOTE | 2018-10-08 19:45 | NUR ---
ASSUMED CARE, PT. AWAKE, NO C/O PAIN, NO SOB.
[2018-10-08 22:00] VITALS: BP 130/78
[2018-10-08] MEDS ORDERED: AMIODARONE HCL 200 MG TAB PO SCH (22:00)
[2018-10-09 05:43] VITALS: BP 133/80
[2018-10-09 05:48] LABS: Basophils # (auto) 0.1 uL; Eosinophils # (auto) 0.2 uL; Eosinophils % (auto) 3.3 % (0.0-7.0); Hemoglobin 12.6 g/dL (12.2-16.2); Lymphocytes # (auto) 1.9 uL; Lymphocytes % (auto) 37.8 % (10.0-50.0); Mean Corpuscular Hemoglobin 31.4 pg (28.0-32.0); Mean Corpuscular Hgb Conc. 34.1 g/dL (32.0-36.0); Mean Corpuscular Volume 92.1 fL (80.0-100.0); Monocytes # (auto) 0.4 uL; Monocytes % (auto) 7.6 % (0.0-12.0); Neutrophils # (auto) 2.6 uL; Neutrophils % (auto) 50.3 % (37.0-80.0); Nucleated Red Blood Cells % 0.1 %; Platelet Count (auto) 232 10^3/uL (140-450); Red Blood Cells 4.02 10^6/uL (4.0-5.20); White Blood Cell 5.1 10^3/uL (4.4-10.8)
[2018-10-09 06:00] LABS: BUN/Creatinine Ratio 16.4; Calcium 8.9 mg/dL (8.5-10.1); Magnesium 2.1 mg/dL (1.6-2.6); Potassium 3.5 mmol/L (3.5-5.1)
[2018-10-09] MEDS: ACCU-CHEK COMFORT CURVE STRIP VI SCH ×4 (06:23→21:49)
--- NOTE | 2018-10-09 08:13 | NUR ---
DR. ROSAS AT BEDSIDE HE ORDERED TO INCREASE AMIODARONE 400MG PO TO TID FOR 5 DAYS.
[2018-10-09 08:48] VITALS: BP 140/77
[2018-10-09] MEDS: cefTRIAXone 1GM/50ML D5W 50 ML IV SCH (09:19)
[2018-10-09] MEDS: FAMOTIDINE 20 MG TAB PO SCH ×2 (09:21→21:49)
[2018-10-09] MEDS: METOPROLOL TARTRATE 25 MG TAB PO SCH ×2 (09:23→21:49)
[2018-10-09 13:00] VITALS: BP 119/75
--- NOTE | 2018-10-09 13:20 | NUR ---
PT SEEN BY DR. HAYNES
[2018-10-09] MEDS: AMIODARONE HCL 200 MG TAB PO SCH ×2 (15:11→21:48)
[2018-10-09 17:00] VITALS: BP 116/75
--- NOTE | 2018-10-09 19:45 | NUR ---
ASSUMED CARE, PT. AWAKE, SITTING ON BED, NO C/ OAPIN, ADVISED PT. NPO AFTER MN, ASKED PT. TO SIGN CONSENT FOR ANAESTHESIA, SHE WILL SIGN IT TOMMORROW, NO SOB.
[2018-10-09 21:30] VITALS: BP 117/75
[2018-10-10 05:00] VITALS: BP 132/82
[2018-10-10] MEDS: AMIODARONE HCL 200 MG TAB PO SCH (05:38)
[2018-10-10] MEDS: ACCU-CHEK COMFORT CURVE STRIP VI SCH ×4 (06:01→21:43)
--- NOTE | 2018-10-10 07:00 | NUR ---
bring pt. to pre-op.
[2018-10-10] MEDS ORDERED: ceFAZolin 1GM/50ML 50 ML IV ONE (07:10)
--- NOTE | 2018-10-10 07:25 | NUR ---
ASSUMED CARE OF PT. PT IS OFF FLOOR TO OR FOR PROCEDURE.
[2018-10-10] MEDS ORDERED: fentaNYL CITRATE 100 MCG/2 ML VL ONE (07:30)
[2018-10-10] MEDS ORDERED: ONDANSETRON HCL 4 MG/2 ML VIAL ONE (07:30)
[2018-10-10] MEDS ORDERED: MIDAZOLAM HCL 1MG/1ML-2 ML VIAL ONE (07:30)
[2018-10-10] MEDS ORDERED: PROPOFOL 10 MG/ML 20 ML IV ONE (07:30)
[2018-10-10] MEDS ORDERED: SODIUM CHLORIDE LOCK 10 ML ONE (07:30)
[2018-10-10] MEDS: METOCLOPRAMIDE HCL 5MG/ml INJ 2ml VIAL IV ONE ×2 (08:15→09:05)
[2018-10-10] MEDS ORDERED: ACCU-CHEK COMFORT CURVE STRIP VI ONE (08:15)
[2018-10-10] MEDS ORDERED: HYDROmorphone HCL 2 MG/ML VL IV PRN (08:15)
[2018-10-10 09:00] VITALS: BP 130/76
--- NOTE | 2018-10-10 09:25 | NUR ---
RECEIVED REPORT FROM JASON RESTREPO OF PACU.
--- NOTE | 2018-10-10 09:55 | NUR ---
RECEIVED PT FROM PACU PT IS AWAKE AND ALERT, WITH [place] CATHETER IN PLACE DRAINING SIDDIQI RED URINE. NO SIGNS OF DISTRESS AT THIS TIME, WILL CONTINUE TO MONITOR.
[2018-10-10] MEDS: cefTRIAXone 1GM/50ML D5W 50 ML IV SCH (10:03)
[2018-10-10] MEDS: METOPROLOL TARTRATE 25 MG TAB PO SCH ×2 (10:16→21:48)
[2018-10-10] MEDS: FAMOTIDINE 20 MG TAB PO SCH ×2 (10:16→21:48)
[2018-10-10 13:00] VITALS: BP 140/84
--- NOTE | 2018-10-10 14:31 | NUR ---
UROLOGY FOLLOW UP CALLED DR. ROGEL'S OFFICE IN [place] GAVE INSTRUCTION , PT WILL CALL THE OFFICE TO SET UP HER APPOINTMENT.
[2018-10-10] MEDS ORDERED: SODIUM CHLORIDE 0.9% 1,000 ML IV ONE (15:00)
[2018-10-10 15:39] VITALS: BP 137/76
--- NOTE | 2018-10-10 15:45 | NUR ---
PT SEEN BY DR. HAYNES PER DR. HAYNES, IF URINE IS PINK AND CLEAR PT CAN GO HOME.
--- NOTE | 2018-10-10 18:23 | NUR ---
DR. HAYNES NOTIFIED, PT STILL HAVE SIDDIQI COLOR URINE AFTER 1 LITER NS BOLUS. HE ORDERED NS AT 125ML/HR AND TO KEEP THE PT OVERNIGHT AND DISCHARGE TO [place] MORNING.
[2018-10-10] MEDS: SODIUM CHLORIDE 0.9% 1,000 ML IV SCH (18:42)
[2018-10-10] MEDS ORDERED: SODIUM CHLORIDE 0.9% 500 ML IV ONE (19:45)
--- NOTE | 2018-10-10 19:55 | NUR ---
SPOKE WITH MD ROGEL. INFORMED MD OF PATIENT'S CURRENT STATUS WITH SIDDIQI RED URINE. MD ORDERED FOR A 500ML BOLUS. INFORMED MD OF PATIENT RECEIVING A PREVIOUS BOLUS. BOLUS STILL DESIRED. WILL PLACE ORDER AT THIS TIME.
[2018-10-10 22:20] VITALS: BP 140/76
[2018-10-11] MEDS: SODIUM CHLORIDE 0.9% 1,000 ML IV SCH (02:30)
--- NOTE | 2018-10-11 02:41 | NUR ---
URINE CLEAR AT THIS TIME AND LADONNA LAWSON'D. PATIENT TOLERATED WELL. WILL CONTINUE TO MONITOR AT THIS TIME.
[2018-10-11 05:23] VITALS: BP 125/76
[2018-10-11] MEDS: ACCU-CHEK COMFORT CURVE STRIP VI SCH (06:31)
--- NOTE | 2018-10-11 07:41 | NUR ---
BLOOD PRESSURE MEDICATION PAGED DR. HAYNES PT HAS NO MEDICATION FOR BLOOD PRESSURE AND HEART RATE, HE ORDERED METOPROLOL TARTRATE 25MG BID #60.
--- NOTE | 2018-10-11 07:50 | NUR ---
WILL CALL IN PRESCRIPTION FOR METOPROLOL AT [facility] AT 9AM.
--- NOTE | 2018-10-11 08:10 | NUR ---
Discharge instructions given as ordered. Encourage to follow up with DR. [facility] ON 10/28/18 AT 2PM, PT TO CALL DR ROGEL'S OFFICE FOR HER APPOINTMENT , TELEPHONE NUMBER AND ADDRESS PROVIDED TO THE PT. All questions and concerns addressed. Patient verbalized understanding. Medication reconciliation form completed and copy given to patient. IV removed with catheter intact, pressure dressing applied, cintron catheter removed. Telemetry unit returned to ICU. Patient taken to vehicle via wheelchair with all personal belongings, accompanied by staff and family member. No distress noted at time of departure.
== END 2018-10-11 08:10 | disposition home or self-care (01) | DRG 660 ==
LOC: ER 11:17 → TELE 15:12 → CENTRAL 18:02 → TELE-CENTR 10-07 22:21
PROVIDERS: ADMIT Internal Medicine; ATTEND Hospitalist
PROC: 0T788DZ Dilation of Bilateral Ureters with Intraluminal Device, Via Natural or Artificial Opening Endoscopic (ICD-10-PCS; principal; 2018-10-10 07:32)
PROC: 0TF7XZZ Fragmentation in Left Ureter, External Approach (ICD-10-PCS; 2018-10-10 07:32)
DX: N13.6 Pyonephrosis (principal); I47.1 Supraventricular tachycardia; E78.5 Hyperlipidemia, unspecified; G20 Parkinson's disease; I45.6 Pre-excitation syndrome; I10 Essential (primary) hypertension; I48.91 Unspecified atrial fibrillation; E11.9 Type 2 diabetes mellitus without complications; Z53.9 Procedure and treatment not carried out, unspecified reason; M17.12 Unilateral primary osteoarthritis, left knee
CPT/HCPCS: 36415; 73562; 74018; 74176; 76775; 80048; 80053; 80307; 81001; 82962; 83036; 83735; 85025; 85610; 85730; 87081; 87086; 93005; 93306; 94761; 96374; 96375; G0378; J0690; J0696; J1885; J2250; J2405; J2704

== ENCOUNTER → 2018-10-24 | Day surgery (SDC) | payer BC, MEDICAID ==
[2018-10-18 11:08] LABS: Basophils # (auto) 0 uL; Basophils % (auto) 0.7 % (0.0-2.0); Eosinophils # (auto) 0.2 uL; Eosinophils % (auto) 3.5 % (0.0-7.0); Hematocrit 40.4 % (36.0-46.0); Hemoglobin 13.3 g/dL (12.2-16.2); Lymphocytes # (auto) 1.1 uL; Lymphocytes % (auto) 17.2 % (10.0-50.0); Mean Corpuscular Hemoglobin 30.6 pg (28.0-32.0); Mean Corpuscular Hgb Conc. 32.9 g/dL (32.0-36.0); Monocytes # (auto) 0.5 uL; Monocytes % (auto) 7.7 % (0.0-12.0); Neutrophils # (auto) 4.6 uL; Neutrophils % (auto) 70.9 % (37.0-80.0); Platelet Count (auto) 218 10^3/uL (140-450); Red Blood Cells 4.34 10^6/uL (4.0-5.20); Red Cell Distribution Width 13.2 % (11.8-14.3); White Blood Cell 6.4 10^3/uL (4.4-10.8)
[2018-10-18 11:14] LABS: Urine Bacteria NONE SEEN /hpf (None Seen); Urine Blood 2+ /uL (Negative); Urine Mucus FEW (None Seen); Urine Specific Gravity 1.008 (1.001-1.035); Urine WBC 9 /hpf (0 - 5)
[2018-10-18 11:22] LABS: Albumin 3.7 g/dL (3.4-5.0); Calcium 9.1 mg/dL (8.5-10.1); Potassium 3.2 mmol/L (3.5-5.1)
[2018-10-18 11:26] LABS: BUN/Creatinine Ratio 12.9; Bilirubin, Total 0.5 mg/dL (0.2-1.0); Total Protein 7.4 g/dL (6.4-8.2)
[2018-10-18 11:31] LABS: INR 1.03 (0.9-1.15); Partial Thromboplastin Time 24.9 sec (23.78-33.04)
[~2018-10-24] VITALS: Ht 165.1 cm; Wt 79.4 kg
[~2018-10-24] MED LIST changes: -CHOL20007 PO; +FAMO-12 PO; +METO25TA5 PO; +MIDAZOLAM HCL 1MG/1ML-2 ML VIAL ONE; +ONDANSETRON HCL 4 MG/2 ML VIAL IV ONE; +PROPOFOL 10 MG/ML 20 ML IV ONE; +ceFAZolin 1GM/50ML 50 ML IV ONE; +ePHEDrine SULFATE 50 MG/ML AMP IV PRN; +fentaNYL CITRATE 100 MCG/2 ML VL IV PRN; +fentaNYL CITRATE 100 MCG/2 ML VL ONE; +hydrALAZINE HCL 20 MG/ML VL IV PRN
[2018-10-24 11:55] VITALS: BP 139/85
== END | disposition home or self-care (01) ==
LOC: SUR 08:49
PROVIDERS: ATTEND Urology
DX: N20.0 Calculus of kidney (principal); E66.9 Obesity, unspecified; E11.9 Type 2 diabetes mellitus without complications; I47.1 Supraventricular tachycardia; Z68.29 Body mass index [BMI] 29.0-29.9, adult; Z98.890 Other specified postprocedural states
CPT/HCPCS: 36415; 50590; 52310; 80053; 81001; 82962; 85025; 85610; 85730; C1769; J0690; J2250; J2704; J3010; J7030

== ENCOUNTER 2022-10-06 18:06 | Emergency (ER) | payer BC, MEDICAID ==
[~2022-10-06] VITALS: Ht 165.1 cm; Wt 77.5 kg
[~2022-10-06 18:06] MED LIST changes: -MIDAZOLAM HCL 1MG/1ML-2 ML VIAL ONE; -ONDANSETRON HCL 4 MG/2 ML VIAL IV ONE; -PROPOFOL 10 MG/ML 20 ML IV ONE; -ceFAZolin 1GM/50ML 50 ML IV ONE; -ePHEDrine SULFATE 50 MG/ML AMP IV PRN; -fentaNYL CITRATE 100 MCG/2 ML VL IV PRN; -fentaNYL CITRATE 100 MCG/2 ML VL ONE; -hydrALAZINE HCL 20 MG/ML VL IV PRN
[2022-10-06 20:09] LABS: Basophils # (auto) 0 10 ^3/uL (0-0.2); Basophils % (auto) 0.4 % (0.0-2.0); Eosinophils # (auto) 0 10 ^3/uL (0-0.8); Eosinophils % (auto) 0.4 % (0.0-7.0); Hematocrit 46.5 % (36.0-46.0); Hemoglobin 15.8 g/dL (12.2-16.2); Lymphocytes # (auto) 1.2 10 ^3/uL (0.4-5.4); Lymphocytes % (auto) 12.8 % (10.0-50.0); Mean Corpuscular Hemoglobin 31.1 pg (28.0-32.0); Mean Corpuscular Volume 91.3 fL (80.0-100.0); Monocytes # (auto) 0.4 10 ^3/uL (0-1.3); Monocytes % (auto) 4.3 % (0.0-12.0); Neutrophils # (auto) 7.9 10 ^3/uL (1.6-8.6); Neutrophils % (auto) 82.1 % (37.0-80.0); Nucleated Red Blood Cells % 0.1 %; Red Blood Cells 5.09 10^6/uL (4.0-5.20); White Blood Cell 9.6 10^3/uL (4.4-10.8)
[2022-10-06 20:29] LABS: Albumin 3.8 g/dL (3.4-5.0); BUN/Creatinine Ratio 23.5; Calcium 9.6 mg/dL (8.5-10.1)
[2022-10-06 20:35] LABS: Bilirubin, Total 0.5 mg/dL (0.2-1.0); Total Protein 7.5 g/dL (6.4-8.2)
[2022-10-07] MEDS ORDERED: MECL12.514 PO (03:04)
[2022-10-07] MEDS ORDERED: ONDA-144 PO (03:04)
[2022-10-07 03:15] VITALS: BP 125/80
== END 2022-10-07 03:19 | disposition home or self-care (01) ==
LOC: ER 18:06
DX: R42 Dizziness and giddiness (principal); I48.91 Unspecified atrial fibrillation; E11.9 Type 2 diabetes mellitus without complications; E78.5 Hyperlipidemia, unspecified; I10 Essential (primary) hypertension; Z79.899 Other long term (current) drug therapy; Z98.890 Other specified postprocedural states
CPT/HCPCS: 36415; 80053; 85025; 93005

== ENCOUNTER 2024-02-11 23:41 | Emergency (ER) | payer BC, OTHER ==
[~2024-02-11] VITALS: Ht 167.6 cm; Wt 70.0 kg
[~2024-02-11 23:41] MED LIST changes: +MECL12.586 PO; +ONDA-144 PO
[2024-02-12] MEDS: ONDANSETRON ODT 4 MG TAB PO ONE (03:33)
[2024-02-12] MEDS: HYDROcodone-ACET 10/325MG TAB PO ONE (03:33)
[2024-02-12 04:54] LABS: Basophils # (auto) 0 10 ^3/uL (0-0.2); Basophils % (auto) 0.2 % (0.0-2.0); Eosinophils # (auto) 0 10 ^3/uL (0-0.8); Hematocrit 45.4 % (36.0-46.0); Lymphocytes % (auto) 6.2 % (10.0-50.0); Mean Corpuscular Hgb Conc. 32.9 g/dL (32.0-36.0); Mean Corpuscular Volume 94.1 fL (80.0-100.0); Monocytes # (auto) 0.8 10 ^3/uL (0-1.3); Monocytes % (auto) 5.3 % (0.0-12.0); Neutrophils % (auto) 88.3 % (37.0-80.0); Red Blood Cells 4.83 10^6/uL (4.0-5.20); White Blood Cell 15.8 10^3/uL (4.4-10.8)
[2024-02-12] MEDS: IOHEXOL 350 MG/ML 100ML IJ ONE (05:06)
[2024-02-12 05:10] LABS: Alanine Aminotransferase 26 U/L (7-40); Albumin 4.3 g/dL (3.2-4.8); Alkaline Phosphatase 114 U/L (46-116); Aspartate Aminotransferase 26 U/L (13-40); BUN/Creatinine Ratio 15.9 (10.0-20.0); Bilirubin, Total 0.8 mg/dL (0.2-1.0); Blood Urea Nitrogen 11 mg/dL (9-23); Chloride 104 mmol/L (98-107); Potassium 4.5 mmol/L (3.5-5.1); Sodium 137 mmol/L (136-145); Total Protein 6.9 g/dL (5.7-8.2)
[2024-02-12 05:11] LABS: Anion Gap 13 (5-15); Carbon Dioxide 20 mmol/L (20-30)
[2024-02-12 05:20] LABS: Glucose 444 mg/dL (74-106)
[2024-02-12] MEDS: SODIUM CHLORIDE 0.9% 1,000 ML IV ONE ×2 (05:35)
[2024-02-12 06:22] VITALS: BP 128/75; TEMP 98
[2024-02-12 06:29] VITALS: PULSE 86; RESP 18; O2SAT 93
[2024-02-12 06:34] VITALS: PULSE 86
[2024-02-12 06:44] LABS: INR 1.06 (0.9-1.15); Prothrombin Time 11.2 sec (9.3-11.8)
== END 2024-02-12 06:49 | disposition short-term general hospital (02) ==
LOC: EDBD 23:41 → ER 23:41
DX: S32.040A Wedge compression fracture of fourth lumbar vertebra, initial encounter for closed fracture (principal); S36.039A Unspecified laceration of spleen, initial encounter; I48.91 Unspecified atrial fibrillation; E11.9 Type 2 diabetes mellitus without complications; E78.5 Hyperlipidemia, unspecified; I10 Essential (primary) hypertension; Z95.1 Presence of aortocoronary bypass graft; V43.52XA Car driver injured in collision with other type car in traffic accident, initial encounter; Y93.89 Activity, other specified; Y92.89 Other specified places as the place of occurrence of the external cause; Y99.8 Other external cause status
CPT/HCPCS: 36415; 72100; 74177; 80053; 85025; 85610; 85730; 93005; 96360; 99285; J7030; Q0162; Q9967